=== PATIENT | female | born 2000 | race Caucasian/White ===

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

== ENCOUNTER → 2020-01-13 16:49 | Outpatient (CLI) | payer OTHER, SELFPAY | PROVIDERS: PCP Family Medicine; Visit Provider Family Medicine | DX: Z03.818 Encounter for observation for suspected exposure to other biological agents ruled out (principal) | CPT/HCPCS: U0003 ==

== ENCOUNTER → 2020-04-11 10:07 | Outpatient (CLI) | payer OTHER, SELFPAY ==
[2020-04-11 14:43] LABS: Basophils % 0.6 % (0.1-2.0); Eosinophils # 0.2 K/mm3 (0.0-0.4); Eosinophils % 3.6 % (0.1-12.0); Hematocrit 40.5 % (37.0-47.0); Hemoglobin 12.8 g/dL (12.2-16.2); Lymphocytes # 1.4 K/mm3 (0.7-4.5); Lymphocytes % 23.2 % (10-50); Mean Corpuscular HGB Conc 31.5 g/dL (31.8-35.4); Mean Corpuscular Hemoglobin 26.7 pg (27.0-31.2); Mean Corpuscular Volume 84.8 fl (81-99); Mean Platelet Volume 7.7 fl (7.4-10.4); Monocytes # 0.4 K/mm3 (0.1-1.0); Monocytes % 6.2 % (1.7-9.3); Neutrophils # 4.1 K/mm3 (1.8-7.8); Neutrophils % 66.3 % (37.0-80.0); Platelet Count 346 K/mm3 (142-424); Red Blood Count 4.78 M/mm3 (4.20-5.40); Red Cell Distribution Width 12.7 % (11.5-17.5); White Blood Count 6.1 K/mm3 (4.5-13.0)
[2020-04-11 15:12] LABS: Strep Scrn Group A (Rapid) Negative (Negative)
[2020-04-12 17:46] LABS: Covid-19 Nasal PCR Sendout Lex Not Detected
== END ==
PROVIDERS: PCP Family Medicine; Visit Provider Nurse Practitioner Family
DX: Z03.818 Encounter for observation for suspected exposure to other biological agents ruled out (principal)
CPT/HCPCS: 36415; 85025; 87430; U0004

== ENCOUNTER → 2020-04-22 15:47 | Outpatient (CLI) | payer OTHER, SELFPAY ==
[2020-04-22 16:25] LABS: Basophils % 0.4 % (0.1-2.0); Eosinophils # 0.1 K/mm3 (0.0-0.4); Eosinophils % 1.3 % (0.1-12.0); Hematocrit 40.4 % (37.0-47.0); Hemoglobin 13.3 g/dL (12.2-16.2); Lymphocytes # 1.6 K/mm3 (0.7-4.5); Lymphocytes % 18.4 % (10-50); Mean Corpuscular HGB Conc 32.8 g/dL (31.8-35.4); Mean Corpuscular Hemoglobin 27.2 pg (27.0-31.2); Mean Corpuscular Volume 82.8 fl (81-99); Mean Platelet Volume 7.5 fl (7.4-10.4); Monocytes # 0.5 K/mm3 (0.1-1.0); Monocytes % 5.8 % (1.7-9.3); Neutrophils # 6.5 K/mm3 (1.8-7.8); Neutrophils % 74.1 % (37.0-80.0); Platelet Count 337 K/mm3 (142-424); Red Blood Count 4.87 M/mm3 (4.20-5.40); Red Cell Distribution Width 13.4 % (11.5-17.5); White Blood Count 8.8 K/mm3 (4.5-13.0)
== END ==
PROVIDERS: PCP Family Medicine; Visit Provider Family Medicine
DX: Z20.828 Contact with and (suspected) exposure to other viral communicable diseases (principal); U07.1 COVID-19
CPT/HCPCS: 36415; 85025; U0003

== ENCOUNTER 2020-04-25 20:56 | Emergency (ER) | payer OTHER, SELFPAY ==
[2020-04-25 20:57] VITALS: BP 127/77; PULSE 89; RESP 16; TEMP 36.6; O2SAT 98; BMI 25.6
--- NOTE | 2020-04-25 21:24 | XR_ITS ---
PROCEDURE: XR CHEST 2V CLINICAL HISTORY: sob Shortness of air, COVID 19 positive COMPARISON: CR CXR CHEST(2 VIEWS-NOT PORTABLE) from 08/25/2011 CR CXR2V XR chest 2V from 06/08/2017 FINDINGS: The cardiomediastinal silhouette and pulmonary vascularity are within normal limits. The lungs are clear without infiltrates, suspicious nodules, or pleural effusions. Calcified granuloma is present in the right lower lobe. There is an S-shaped curvature of the thoracic and lumbar spine as before. IMPRESSION: No acute findings. Dictated by: Cooper Palmer MD 04/26/2020 05:58 Cooper Palmer MD in [place] 04/26/2020 05:58
[2020-04-25 21:27] VITALS: BP 106/79; PULSE 70; RESP 16; O2SAT 97
--- NOTE | 2020-04-25 21:35 | ECG_ITS ---
APPROVED REPORT Exam: Resting ECG HR:65 bpm ECG Measurements Heart Rate 65 AXES WV 158 P 53 QRSd 86 QRS 67 QT 380 T 27 QTc 395 Conclusion Normal sinus rhythm Normal ECG Electronically signed by : Stan Holland, 04/27/2020 19:22:04
[2020-04-25 22:00] VITALS: BP 125/71; PULSE 72; RESP 18; O2SAT 99
--- NOTE | 2020-04-25 22:01 | CT_ITS ---
PROCEDURE: CT ANGIO CHEST CLINCIAL INDICATION: pe rule out COVID 19 positive, shortness of air COMPARISON: No exams were available for comparison TECHNIQUE: IV Contrast: 70ML Isovue 370 Axial images obtained with sagittal and coronal reformats. All CT scans at the facility use one or more dose reduction, viz: automated exposure control, ma/kV adjustment per patient size (including targeted exams where dose is matched to indication, i.e. head), or iterative reconstruction technique. FINDINGS: HEART AND MEDIASTINAL STRUCTURES: Pulmonary artery opacification is somewhat limited secondary to bolus timing. No central pulmonary embolus. Peripheral pulmonary arteries are not well opacified. No aortic aneurysm or dissection. No mediastinal or hilar mass. There is increased density of the anterior mediastinum which may be related to residual thymic tissue. There are calcified mediastinal and hilar lymph nodes LUNGS AND PLEURAL SPACES: Calcified granulomas present in the right lower lobe. Lungs are otherwise clear. BONY STRUCTURES: S-shaped curvature of the thoracic spine. UPPER ABDOMEN: Unremarkable. ADDITIONAL FINDINGS: No other significant abnormalities. IMPRESSION: No acute finding Dictated by: Cooper Palmer MD 04/26/2020 06:23 Cooper aPlmer MD in [place] 04/26/2020 06:23
--- NOTE | 2020-04-25 22:01 | HMH.EDSOB ---
ED Disposition Clinical Impression: COVID-19 UTI (urinary tract infection) Qualifiers: Urinary tract infection type: site unspecified Hematuria presence: without hematuria Qualified Code(s): N39.0 - Urinary tract infection, site not specified Disposition: Home, Self-Care Condition on Discharge: Good Instructions: DI for Shortness of Breath Additional Instructions: see pcp for follow up Prescriptions: levoFLOXacin [Levaquin 500mg tab] 500 mg PO DAILY #7 tab Transmission Status: Pending to [id number] Referrals: Sunny Cowan MD [Primary Care Provider] - - Critical Care Critical Care Time: No Attestation: On 04/25/20, the high probability of a clinically significant, sudden or life threatening deterioration of the following system(s) required my full and direct attention, intervention and personal management. The time I documented below is in addition to time spent performing reported procedures but includes the following listed in this critical care notation. Medical Decision Making - Medical Records Medical records reviewed: Yes: I reviewed the patient's medical records. - Frnako Inquiry Pt receiving controlled substance: No Vital Signs: 04/25/20 20:57 04/25/20 21:27 04/25/20 22:00 Temperature 97.8 F Temperature Source Oral Pulse Rate [Left Radial] 89 70 72 Respiratory Rate 16 16 18 Blood Pressure [Right Arm] 127/77 106/79 L 125/71 Blood Pressure Mean [Right Arm] 93 88 89 Blood Pressure Source [Right Arm] Automatic Cuff Automatic Cuff Automatic Cuff Blood Pressure Position [Right Arm] Supine Supine Supine 02 Sat by Pulse Oximetry 98 97 99 Oxygen Delivery Method Room Air Room Air Room Air 04/25/20 23:00 Temperature Temperature Source Pulse Rate [Left Radial] 74 Respiratory Rate 16 Blood Pressure [Right Arm] 127/77 Blood Pressure Mean [Right Arm] 93 Blood Pressure Source [Right Arm] Automatic Cuff Blood Pressure Position [Right Arm] Supine 02 Sat by Pulse Oximetry 98 Oxygen Delivery Method Room Air - Lab Data Lab results reviewed: Yes: I reviewed the patient's lab results. Lab Results 04/25/20 22:45: WBC 8.4, RBC 4.80, Hgb 13.3, Hct 41.3, MCV 86.0, MCH 27.6, MCHC 32.2, RDW 13.2, Plt Count 363, MPV 7.7, Neut % (Auto) 57.4, Lymph % (Auto) 32.3, Barton % (Auto) 7.1, Eos % (Auto) 2.9, Baso % (Auto) 0.4, Neut # (Auto) 4.8, Lymph # (Auto) 2.7, Barton # (Auto) 0.6, Eos # (Auto) 0.2, Baso # (Auto) 0.0 04/25/20 22:45: Sodium 139, Potassium 3.8, Chloride 103, Carbon Dioxide 30, Anion Gap 9.8, BUN 8, Creatinine 0.60, Estimated Creat Clear 151, Estimated GFR 129, Est GFR ( Amer) 156, Glucose 89, Calcium 9.2, Troponin I < 0.01 04/25/20 22:49: Urine Color Red, Urine Appearance Clear, Urine pH 7.5, Ur Specific [place] 1.020, Urine Protein 2+, Urine Glucose (UA) Negative, Urine Ketones Negative, Urine Blood 3+, Urine Nitrate Positive, Urine Bilirubin Negative, Urine Urobilinogen 0.2, Ur Leukocyte Esterase 2+ A, Urine RBC 10-20, Urine WBC 10-20, Urine Bacteria 1+ 04/25/20 22:49: Urine HCG, Qual Negative Result diagrams: 04/25/20 22:45 04/25/20 22:45 Orders (Tests/Meds): ED MEDICATIONS Generic Name Dose Route Start Last Admin Trade Name Freq PRN Reason Stop Dose Admin Sodium Chloride 1,000 mls @ 999 mls/hr 04/25/20 21:30 04/25/20 21:32 Sod Chlor 0.9% 1000ml Bag IV 04/25/20 22:30 999 mls/hr .Q1H1M LITA Administration Discontinued Medications Generic Name Dose Route Start Last Admin Trade Name Freq PRN Reason Stop Dose Admin Iopamidol 70 ml 04/25/20 23:50 Iopamidol-370 (76%);100ml Bottle IV 04/25/20 23:51 ONCE ONE Methylprednisolone Sodium Succinate 125 mg 04/25/20 21:25 04/25/20 21:32 Methylprednisolone Sod Succ 125mg Vial IV 04/25/20 21:26 125 mg ONCE ONE Administration Sodium Chloride 40 ml 04/25/20 23:50 0.9 % Sodium Chloride 50 Ml Vial IV 04/25/20 23:51 ONCE ONE Sodium Chloride 10 ml 04/25/20 23:50 Sodium Chlori
[2020-04-25 22:53] LABS: Microscopic, Urine URINE MICROSCOPIC (MICROSCOPIC)
[2020-04-25 22:58] LABS: Appearance,Urine CLEAR (Clear); Blood, Urine 3+ (Negative); Color,Urine RED (Yellow); Glucose,Urine (UA) Negative (Negative); Ketones,Urine Negative (Negative); Leukocyte Esterase,Urine 2+ (Negative); Nitrate,Urine POSITIVE (Negative); PH,Urine 7.5 (5.0-8.5); Protein,Urine 2+ (Negative); Urobilinogen,Urine 0.2 EU/dl (0.2)
[2020-04-25 22:59] LABS: Urine Pregnancy, HCG Qual. Negative (Negative)
[2020-04-25 23:00] VITALS: BP 127/77; PULSE 74; RESP 16; O2SAT 98
[2020-04-25 23:07] LABS: Basophils % 0.4 % (0.1-2.0); Chloride 103 mmol/L (98-107); Eosinophils # 0.2 K/mm3 (0.0-0.4); Eosinophils % 2.9 % (0.1-12.0); Hematocrit 41.3 % (37.0-47.0); Hemoglobin 13.3 g/dL (12.2-16.2); Lymphocytes # 2.7 K/mm3 (0.7-4.5); Lymphocytes % 32.3 % (10-50); Mean Corpuscular HGB Conc 32.2 g/dL (31.8-35.4); Mean Corpuscular Hemoglobin 27.6 pg (27.0-31.2); Mean Platelet Volume 7.7 fl (7.4-10.4); Monocytes # 0.6 K/mm3 (0.1-1.0); Monocytes % 7.1 % (1.7-9.3); Neutrophils # 4.8 K/mm3 (1.8-7.8); Neutrophils % 57.4 % (37.0-80.0); Platelet Count 363 K/mm3 (142-424); Potassium 3.8 mmoL/L (3.5-5.1); Red Cell Distribution Width 13.2 % (11.5-17.5); Sodium 139 mmol/L (136-145); White Blood Count 8.4 K/mm3 (4.5-13.0)
[2020-04-25 23:09] LABS: Bilirubin,Urine Negative (Negative)
[2020-04-25 23:10] LABS: Blood Urea Nitrogen 8 mg/dl (7-17); Calcium 9.2 mg/dl (8.4-10.2); Creatinine Clearance Estimated 151 mL/min (50-200); Estimated Glomerular Filt Rate 129 ml/min (>60); GFR (African American) 156 ML/MIN (>60); Glucose 89 mg/dl (74-100)
[2020-04-25 23:23] LABS: Troponin I < 0.01 ng/ml (0.00-0.034)
[2020-04-25 23:37] LABS: Bacteria,Urine 1+ /lpf
[2020-04-25 23:38] LABS: Anion Gap 9.8 mEq/L (5-15); Carbon Dioxide 30 mmol/L (22.0-30.0)
[2020-04-26 00:11] VITALS: BP 131/84; PULSE 75; RESP 16; TEMP 36.6; O2SAT 96
== END 2020-04-26 00:09 | disposition home or self-care (01) ==
PROVIDERS: Emergency Provider Emergency Medicine; PCP Family Medicine
DX: U07.1 COVID-19 (principal); N39.0 Urinary tract infection, site not specified
CPT/HCPCS: 71046; 71275; 80048; 81001; 81025; 84484; 85025; 87086; 93005; 96365; 96375; 99283; Q9967

== ENCOUNTER → 2020-10-08 10:37 | Outpatient (CLI) | payer OTHER, SELFPAY ==
[2020-10-08 11:07] LABS: Adenovirus,PCR Not Detected (NotDetected); Bordetella Pertussis Not Detected (NotDetected); Chlamydophila Pneumoniae, PCR Not Detected (NotDetected); Coronavirus 19, PCR Not Detected (NotDetected); Coronavirus 229E Not Detected (NotDetected); Coronavirus NL63 Not Detected (NotDetected); Coronavirus OC43 Not Detected (NotDetected); Coronovirus HKU1,PCR Not Detected (NotDetected); Human Metapneumovirus Not Detected (NotDetected); Influenza A, PCR Not Detected (NotDetected); Influenza AH1, 2009 Not Detected (NotDetected); Influenza AH1, PCR Not Detected (NotDetected); Influenza AH3,PCR Not Detected (NotDetected); Influenza B, PCR Not Detected (NotDetected); Mycoplasma Pneumoniae, PCR Not Detected (NotDetected); Parainfluenza 1, PCR Not Detected (NotDetected); Parainfluenza 2, PCR Not Detected (NotDetected); Parainfluenza 3, PCR Not Detected (NotDetected); Parainfluenza 4, PCR Not Detected (NotDetected); Respiratory Syncytial Virus Not Detected (NotDetected)
[2020-10-08 11:14] LABS: Basophils % 0.5 % (0.1-2.0); Eosinophils # 0.2 K/mm3 (0.0-0.4); Eosinophils % 3.2 % (0.1-12.0); Hematocrit 39.1 % (37.0-47.0); Lymphocytes # 1.5 K/mm3 (0.7-4.5); Lymphocytes % 20.8 % (10-50); Mean Corpuscular HGB Conc 33.1 g/dL (31.8-35.4); Mean Corpuscular Hemoglobin 26.6 pg (27.0-31.2); Mean Corpuscular Volume 80.3 fl (81-99); Mean Platelet Volume 7.7 fl (7.4-10.4); Monocytes # 0.4 K/mm3 (0.1-1.0); Monocytes % 5.9 % (1.7-9.3); Neutrophils # 5.1 K/mm3 (1.8-7.8); Neutrophils % 69.6 % (37.0-80.0); Platelet Count 345 K/mm3 (142-424); Red Blood Count 4.87 M/mm3 (4.20-5.40); Red Cell Distribution Width 13.6 % (11.5-17.5); White Blood Count 7.3 K/mm3 (4.5-13.0)
[2020-10-08 11:57] LABS: Strep Scrn Group A (Rapid) Negative (Negative)
[2020-10-08 13:19] LABS: Rhinovirus/Enterovirus Detected (NotDetected)
== END ==
PROVIDERS: PCP Nurse Practitioner Family; Visit Provider Nurse Practitioner Family
DX: Z20.822 Contact with and (suspected) exposure to COVID-19 (principal); B34.8 Other viral infections of unspecified site; J02.9 Acute pharyngitis, unspecified
CPT/HCPCS: 85025; 87430; 87581; 87633; 87798

== ENCOUNTER → 2021-01-04 11:31 | Outpatient (CLI) | payer OTHER, SELFPAY ==
[2021-01-04 11:56] LABS: Adenovirus,PCR Not Detected (NotDetected); Bordetella Pertussis Not Detected (NotDetected); Chlamydophila Pneumoniae, PCR Not Detected (NotDetected); Coronavirus 19, PCR Not Detected (NotDetected); Coronavirus 229E Not Detected (NotDetected); Coronavirus NL63 Not Detected (NotDetected); Coronavirus OC43 Not Detected (NotDetected); Coronovirus HKU1,PCR Not Detected (NotDetected); Human Metapneumovirus Not Detected (NotDetected); Influenza A, PCR Not Detected (NotDetected); Influenza AH1, 2009 Not Detected (NotDetected); Influenza AH1, PCR Not Detected (NotDetected); Influenza AH3,PCR Not Detected (NotDetected); Influenza B, PCR Not Detected (NotDetected); Mycoplasma Pneumoniae, PCR Not Detected (NotDetected); Parainfluenza 1, PCR Not Detected (NotDetected); Parainfluenza 2, PCR Not Detected (NotDetected); Parainfluenza 3, PCR Not Detected (NotDetected); Parainfluenza 4, PCR Not Detected (NotDetected); Respiratory Syncytial Virus Not Detected (NotDetected); Rhinovirus/Enterovirus Not Detected (NotDetected)
[2021-01-04 12:16] LABS: Basophils % 0.9 % (0.1-2.0); Eosinophils # 0.1 K/mm3 (0.0-0.4); Eosinophils % 2.2 % (0.1-12.0); Hematocrit 37.5 % (37.0-47.0); Hemoglobin 12.4 g/dL (12.2-16.2); Lymphocytes # 1.3 K/mm3 (0.7-4.5); Lymphocytes % 25.6 % (10-50); Mean Corpuscular HGB Conc 33.2 g/dL (31.8-35.4); Mean Corpuscular Hemoglobin 26.5 pg (27.0-31.2); Mean Corpuscular Volume 79.8 fl (81-99); Mean Platelet Volume 7.9 fl (7.4-10.4); Monocytes # 0.3 K/mm3 (0.1-1.0); Monocytes % 5.7 % (1.7-9.3); Neutrophils # 3.3 K/mm3 (1.8-7.8); Neutrophils % 65.6 % (37.0-80.0); Platelet Count 284 K/mm3 (142-424); Red Cell Distribution Width 14.1 % (11.5-17.5)
== END ==
PROVIDERS: PCP Family Medicine; Visit Provider Physician Assistant
DX: Z20.822 Contact with and (suspected) exposure to COVID-19 (principal)
CPT/HCPCS: 36415; 85025; 87581; 87633; 87798

== ENCOUNTER 2021-01-07 14:45 | Emergency (ER) | payer OTHER, SELFPAY ==
[2021-01-07 14:45] VITALS: BP 126/81; PULSE 97; RESP 18; TEMP 37; O2SAT 97; BMI 26.4
--- NOTE | 2021-01-07 15:15 | HMH.EDUTC ---
[facility] [place] Clinical Impression: Strep throat Disposition: Home, Self-Care Condition on Discharge: Good Instructions: Strep Throat, DI for Strep Throat, DI for Cough -- Adult Additional Instructions: *Monitor Temp, Over the counter Motrin or Tylenol as directed/as needed Tylenol every 4 hours and Motrin every 6 hours (as long as your family doctor has told you that you can take it) for fever or pain. and straight to ER if unable to lower temp less than 101.0 after medication given *Warm salt water gargles may help to soothe the throat *Throat Lozenges *Warm fluids like tea with honey may help to soothe the throat *Sleep elevated *Humidifier/Vaporizer *If you did not take Penicillin shot or was unable to, start taking antibiotic immediately and make sure that you take it for the FULL length of time although you should start to feel better in 24-48 hours *change toothbrush and toothpaste 24-48 hours after starting to take antibiotics so you do not reinfect yourself Monitor Temp. Tylenol and/or Ibuprofen as needed. ER if fever is no less than 101 despite alternating Tylenol and Ibuprofen * Encourage fluids, water, Gatorade, powerade, pedialyte if infant/toddler/or child *Cold fluids, popsicles and ice cream may feel good on his throat Follow up IMMEDIATELY for new or worsening symptoms or no Noticeable improvement over the next 48-72 hours. 911 for difficulty breathing or swallowing Prescriptions: Cefdinir [Omnicef 300mg Capsule] 300 mg PO BID #20 cap Transmission Status: Received by [id number] Referrals: Sunny Cowan MD [Primary Care Provider] - As needed Forms: Work/School Release Medical Decision Making - Franko Inquiry Pt receiving controlled substance: No Franko was queried for this patient: No Vital Signs: 01/07/21 14:45 01/07/21 15:17 Temperature 98.6 F 98.6 F Temperature Source Oral Pulse Rate 97 H Pulse Rate [Right Brachial] 97 H Respiratory Rate 18 18 Blood Pressure 126/81 Blood Pressure [Right Arm] 126/81 Blood Pressure Mean [Right Arm] 96 Blood Pressure Source [Right Arm] Automatic Cuff Blood Pressure Position [Right Arm] Sitting 02 Sat by Pulse Oximetry 97 Oxygen Delivery Method Room Air - Lab Data Lab results reviewed: Yes: I reviewed the patient's lab results. Lab Results 01/07/21 15:14: Strep Scn Rapid Clinic Positive A Orders (Tests/Meds): ORDERS Category Date Time Status Chest XR 2 view (NOT portable) [XR chest 2V] Stat Exams 01/07/21 15:19 Taken - Radiology Data #1 Image(s): Chest Image Reviewed: Yes I have reviewed radiologist's interpretation No acute IMPRESSION: Thoracolumbar scoliosis. No acute finding. [facility] [place] - General Stated complaint: cough, soa, fever Time Seen by Provider: 01/07/21 15:15 Mode of Arrival: Ambulatory Source of Information: Patient Limitations: No Limitations Description of Symptoms (Recalled from Triage Doc. by RN): PATIENT C/O SORE THROAT, HEADACHE, BODY ACHES, AND CHEST CONGESTION SINCE THURSDAY. BLOOD WORK AND COVID TEST DONE THURSDAY PER PCP HEENT Symptoms (Recalled from RN notes): Yes Resp Symptoms (Recalled from RN notes): Yes Skin Symptoms (Recalled from RN notes): No MS Symptoms (Recalled from RN notes): No Functional Status (Recalled from RN notes): WNL - History of Present Illness Provider Complaint: Patient state that she was seen by her PCP on Thursday and had lab work and COVID testing done and it was all negative States that her PCP sent her in some cough medication States that she has still been having fever, sore throat and burning in her throat and chest area when she coughs State that they told her to come in and get rechecked 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 - Related Data Home Medications Medication Instructions Recorded Confirmed escitalopram oxalate 20 mg tablet 20 mg PO DAILY tab 01/03/20 01/07/21 copper 380 square mm intraute
[2021-01-07 15:16] LABS: UTC Strep Screen (Rapid) Positive (Negative)
[2021-01-07 15:17] VITALS: BP 126/81; PULSE 97; RESP 18; TEMP 37; O2SAT 97
--- NOTE | 2021-01-07 15:19 | XR_ITS ---
PROCEDURE: XR CHEST 2V CLINICAL HISTORY: COUGH COMPARISON: CR CXR CHEST(2 VIEWS-NOT PORTABLE) from 08/25/2011 CR CXR2V XR chest 2V from 06/08/[address] ANGIO CHEST from 04/25/2020 CR XR CHEST 2V from 04/25/2020 FINDINGS: The cardiomediastinal silhouette and pulmonary vascularity are within normal limits. The lungs are clear without infiltrates, suspicious nodules, or pleural effusions. There is thoracolumbar scoliosis. Thoracic scoliosis convex right at 32 degrees. Lumbar scoliosis convex left at 25 degrees. Overall not significantly changed IMPRESSION: Thoracolumbar scoliosis. No acute finding. Dictated by: Cooper Palmer MD 01/07/2021 15:48 Cooper Palmer MD in [place] 01/07/2021 15:48
== END 2021-01-07 16:05 | disposition home or self-care (01) ==
PROVIDERS: Emergency Provider Nurse Practitioner; PCP Family Medicine
DX: J02.0 Streptococcal pharyngitis (principal)
CPT/HCPCS: 71046; 87880; 99202; G0463

== ENCOUNTER 2021-10-27 10:20 | Emergency (ER) | payer OTHER, SELFPAY ==
[2021-10-27 10:37] VITALS: BP 118/74; PULSE 75; RESP 19; TEMP 37.2; O2SAT 98; BMI 29.6
--- NOTE | 2021-10-27 10:38 | HMH.EDUTC ---
[facility] [place] Disposition Clinical Impression: Viral syndrome Pharyngitis Qualifiers: Pharyngitis/tonsillitis etiology: other specified organisms Qualified Code(s): J02.8 - Acute pharyngitis due to other specified organisms Disposition: Home, Self-Care Condition on Discharge: Good Instructions: DI for Pharyngitis/Tonsillopharyngitis -- Adult Additional Instructions: Drink plenty of fluids. Take tylenol or ibuprofen for pain or fever. Take the medications as directed. Follow up with your regular doctor. GO TO THE ER FOR ANY WORSENING SYMPTOMS Prescriptions: Brompheniramine/Pseudoephed/Dm [Bromfed Dm Cough Syrup] 5 ml PO Q6HP PRN #240 ml PRN Reason: Cough Transmission Status: Received by [id number] Ibuprofen [Ibuprofen 600mg Tablet] 600 mg PO Q6HP PRN #30 tab PRN Reason: Mild Pain Transmission Status: Received by [facility] Azithromycin [Z-Narendra 250mg Tab*] 250 mg PO UD DOSE PK #6 tab Transmission Status: Received by [facility] Referrals: Sunny Cowan MD [Primary Care Provider] - Time of Disposition: 11:14 Medical Decision Making - Medical Records Medical records reviewed: No: I reviewed the patient's medical records. - Franko Inquiry Pt receiving controlled substance: No Vital Signs: 10/27/21 10:37 10/27/21 11:35 Temperature 99.0 F 99.0 F Temperature Source Oral Pulse Rate 75 Pulse Rate [Left Radial] 75 Respiratory Rate 19 19 Blood Pressure 118/74 Blood Pressure [Right Arm] 118/74 Blood Pressure Mean [Right Arm] 88 02 Sat by Pulse Oximetry 98 - Lab Data Lab results reviewed: Yes: I reviewed the patient's lab results. Lab Results 10/27/21 10:32: Influenza Type A Ag Negative, Influenza Type B Ag Negative 10/27/21 10:35: Group A Strep Rapid Negative Orders (Tests/Meds): ORDERS Category Date Time Status Strep Screen Confirmation Stat Micro 10/27/21 10:35 Received [facility] [place] HPI - General Stated complaint: fever, sore throat, bodyaches Time Seen by Provider: 10/27/21 10:40 - History of Present Illness Provider Complaint: She states that she has had a sore throat, sinus congstion and a cough for the past 2 days. - Related Data Home Medications Medication Instructions Recorded Confirmed escitalopram oxalate 20 mg tablet 20 mg PO DAILY tab 01/03/20 03/19/21 copper 380 square mm intrauterine 1 device INTRAUTERI ONCE 10/25/20 03/19/21 device Previous Rx's Medication Instructions Recorded Azithromycin [Z-Narendra 250mg Tab*] 250 mg PO UD DOSE PK #6 tab 10/27/21 Brompheniramine/Pseudoephed/Dm 5 ml PO Q6HP PRN #240 ml 10/27/21 [Bromfed Dm Cough Syrup] Ibuprofen [Ibuprofen 600mg 600 mg PO Q6HP PRN #30 tab 10/27/21 Tablet] Allergies Allergy/AdvReac Type Severity Reaction Status Date / Time cinnamon Allergy Unknown Unknown Verified 03/19/21 13:19 allergy reaction oxycodone [From PERCOCET] Allergy Unknown I-HIVES Verified 03/19/21 13:19 shellfish derived Allergy Unknown Rash Verified 03/19/21 13:19 strawberry Allergy Unknown Verified 03/19/21 13:19 allergy reaction [facility] History - Hepatitis A Screen Attestation statement:: This patient has been screened for Hepatitis A risk factors. I have reviewed the patient's past medical history: Yes Medical History: Denies:: Cancer, Diabetes Mellitus Type 1, Diabetes Mellitus Type 2, MRSA Comment: NEXPLANON Laterality Cases: Bilateral: Tonsillectomy Other Surgeries: Yes: Other Amputation: No Fractures: No Comment: 2002- sinus surgery. 2007- tonsil-X. 2017- Dx. 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
[2021-10-27 10:46] LABS: UTC Influenza A Antigen Negative (Negative); UTC Influenza B Antigen Negative (Negative)
[2021-10-27 10:54] LABS: Strep Scrn Group A (Rapid) Negative (Negative)
[2021-10-27 11:35] VITALS: BP 118/74; PULSE 75; RESP 19; TEMP 37.2
== END 2021-10-27 11:36 | disposition home or self-care (01) ==
PROVIDERS: Emergency Provider Nurse Practitioner Family; PCP Family Medicine
DX: J02.8 Acute pharyngitis due to other specified organisms (principal); B34.9 Viral infection, unspecified
CPT/HCPCS: 87430; 87804; 99212; G0463

== ENCOUNTER → 2021-12-12 14:09 | Outpatient (CLI) | payer OTHER, SELFPAY ==
--- NOTE | 2021-12-12 14:13 | XR_ITS ---
FINAL REPORT CLINICAL HISTORY: INJURY OF RIGHT KNEE FINDINGS: RIGHT KNEE Three views were obtained. There is no acute fracture or dislocation. The joint spaces appear normal. No joint effusion is identified. No soft tissue abnormality is identified. IMPRESSION: No acute process. Reviewed, Interpreted and Dictated by Iban Nuno III, MD Transcribed by Susan Koenig Authenticated and [facility]
--- NOTE | 2021-12-12 14:14 | XR_ITS ---
FINAL REPORT CLINICAL HISTORY: INJURY OF RIGHT KNEE ENCOUNTER FINDINGS: RIGHT TIBIA FIBULA Two views were obtained. There is no acute fracture or dislocation. The joint spaces appear normal. No soft tissue abnormality is identified. IMPRESSION: No acute process. Reviewed, Interpreted and Dictated by Iban Nuno III, MD Transcribed by Susan Koenig Authenticated and [facility]
== END ==
PROVIDERS: PCP Family Medicine; Visit Provider Physician Assistant
DX: S89.91XA Unspecified injury of right lower leg, initial encounter (principal); M25.561 Pain in right knee
CPT/HCPCS: 73562; 73590

== ENCOUNTER 2022-03-15 08:41 | Emergency (ER) | payer OTHER, SELFPAY ==
[2022-03-15 09:02] VITALS: BP 126/79; PULSE 91; RESP 16; TEMP 36.7; O2SAT 96; BMI 28.7
[2022-03-15 09:02] LABS: UTC Strep Screen (Rapid) Negative (Negative)
--- NOTE | 2022-03-15 09:14 | EXP.UTC ---
Discharge Plan Disposition Patient Disposition: Home, Self-Care Condition: Good Prescriptions Prescriptions: New amoxicillin [amoxicillin] 500 mg tablet 500 mg PO TID 10 Days Qty: 30 0RF methylprednisolone 4 mg Tablets,Dose Pack 4 mg PO DIRECTED Qty: 21 0RF ndaotstueycjbjt-hcuvryetg-ZX [Bromfed DM] 2-30-10 mg/5 mL Syrup 5 ml PO Q6H PRN (Reason: Cough) Qty: 240 0RF No Action escitalopram oxalate 20 mg tablet 20 mg PO DAILY ParaGard T 380A 380 square mm intrauterine device 1 device INTRAUTERI ONCE azithromycin 250 MG tablet 250 mg PO UD DOSE PK Qty: 6 0RF Rx Instructions: Take two (2) tablets today, then one (1) tablet days #2 thru #5 ibuprofen 600 MG tablet 600 mg PO Q6HP PRN (Reason: Mild Pain) Qty: 30 0RF tzzgrtlalwqmxum-bgsbigtrb-SP 118 ML syrup 5 ml PO Q6HP PRN (Reason: Cough) Qty: 240 0RF Referrals Follow up/Referrals: Sunny Cowan MD [Primary Care Provider] - See instructions Activity Restrictions/Add. Instructions Additional Instructions/Restrictions: Drink plenty of fluids. Take tylenol or ibuprofen for pain or fever. Take the medications as directed. Follow up with your regular doctor. GO TO THE ER FOR ANY WORSENING SYMPTOMS Clinical Impressions Clinical Impression: Pharyngitis Instructions Patient Instructions: Strep Throat, DI for Strep Throat Discharge ED Provider: Colby Francis [facility] [place] General Stated complaint: sore throat Mode of Arrival: Ambulatory Source of Information: Patient Limitations: No Limitations Time Seen by Provider: 03/15/22 09:10 Description of Symptoms (Recalled from Triage Doc. by RN): pt comes in with c/o sore throat and cough. symptoms began 3 days ago. HEENT Symptoms (Recalled from RN notes): Yes Resp Symptoms (Recalled from RN notes): Yes Skin Symptoms (Recalled from RN notes): No MS Symptoms (Recalled from RN notes): No Functional Status (Recalled from RN notes): n/a History of Present Illness Provider Complaint: She states that for the past 2 days she has had worsening sore throat, chills, and malaise. Related Data Home Medications Medication Instructions Recorded Confirmed escitalopram oxalate 20 mg tablet 20 mg PO DAILY Anxiety 01/03/20 11/01/21 copper 380 square mm intrauterine 1 device intrauterine ONCE 10/25/20 11/01/21 device (ParaGard T 380A) control Previous Rx's Medication Instructions Recorded azithromycin 250 mg tablet 250 mg PO UD DOSE PK #6 tabs 10/27/21 joyqadzvuixqjfu-vhfoytrqonyrujd-AX 5 ml PO Q6HP PRN Cough #240 mL 10/27/21 2 mg-30 mg-10 mg/5 mL oral syrup ibuprofen 600 mg tablet 600 mg PO Q6HP PRN Mild Pain #30 10/27/21 tabs amoxicillin 500 mg tablet 500 mg PO TID 10 days #30 tabs 03/15/22 zkyuwzrwbieydez-dsdnkytridkkikz-IA 5 ml PO Q6H PRN Cough #240 mL 03/15/22 2 mg-30 mg-10 mg/5 mL oral syrup (Bromfed DM) methylprednisolone 4 mg tablets in 4 mg PO DIRECTED #21 tabs 03/15/22 a dose pack Allergies Allergy/AdvReac Type Severity Reaction Status Date / Time cinnamon Allergy Unknown Unknown Verified 03/15/22 09:04 allergy reaction oxycodone [From PERCOCET] Allergy Unknown I-HIVES Verified 03/15/22 09:04 shellfish derived Allergy Unknown Rash Verified 03/15/22 09:04 strawberry Allergy Unknown Verified 03/15/22 09:04 allergy reaction Worker's Comp Is this a Worker's Comp case?: No PFSH PFSH Social History Smoking Status: Never smoker alcohol intake: never substance use type: denies use current occupational status: other Travel in the last 8 weeks: None housing: house ROS Obtained: Yes All systems reviewed & no additional complaints except as documented Constitutional Constitutional: Reports chills and Reports fever(s) Eyes Eyes: Denies eye discharge ENT Ears, Nose, Mouth, and Throat: Reports as per HPI Cardiovascular Cardiovascular: Denies chest
[2022-03-15 09:28] VITALS: BP 126/79; PULSE 91; RESP 16; TEMP 36.7
== END 2022-03-15 09:33 | disposition home or self-care (01) ==
PROVIDERS: Emergency Provider Nurse Practitioner Family; PCP Family Medicine
DX: J02.9 Acute pharyngitis, unspecified (principal)
CPT/HCPCS: 87880; 99212; G0463

== ENCOUNTER 2023-02-02 09:08 | Emergency (ER) | payer OTHER, SELFPAY ==
[2023-02-02 09:10] VITALS: BP 126/84; PULSE 101; RESP 18; TEMP 36.6; O2SAT 99; BMI 28.8
[2023-02-02 09:31] VITALS: BP 107/82; PULSE 100; O2SAT 99
--- NOTE | 2023-02-02 09:52 | HMH.EDGENADL ---
Discharge Plan Disposition Patient Disposition: Home, Self-Care Prescriptions Prescriptions: New promethazine-DM 6.25-15 mg/5 mL syrup 5 ml PO Q6H PRN (Reason: cough) 7 Days Qty: 118 0RF albuterol sulfate 90 mcg/actuation HFA aerosol inhaler 4 inh inhalation Q4H PRN (Reason: shortness of breath or wheezing) Qty: 8.5 0RF Rx Instructions: 4 puffs every 4 hours for 48 hours then as needed for shortness of breath or wheezing following ondansetron 4 mg tablet,disintegrating 4 mg PO Q6H PRN (Reason: nausea and vomiting) 5 Days Qty: 20 0RF No Action duloxetine 60 mg capsule,delayed release(DR/EC) 60 mg PO DAILY Patient Comments: TAKE 1 CAPSULE BY MOUTH ONCE DAILY norgestimate-ethinyl estradiol [Sprintec (28)] 0.25-35 mg-mcg tablet 1 tab PO DAILY quetiapine 25 mg tablet 25 mg PO HS Patient Comments: TAKE 1 TABLET BY MOUTH AT BEDTIME cefdinir 300 mg capsule 300 mg PO BID Patient Comments: TAKE 1 CAPSULE BY MOUTH EVERY 12 HOURS FOR 10 DAYS Referrals Follow up/Referrals: Sunny Cowan MD [Primary Care Provider] - See instructions Activity Restrictions/Add. Instructions Additional Instructions/Restrictions: Your treatment will be supportive meaning treating your symptoms. You may take Tylenol 1000 mg 3 times a day with or without 800 mg of ibuprofen 3 times a day. You may do this for the next week as needed. Additionally been given prescriptions for cough and nausea if needed. Return with any worsening symptoms. Clinical Impressions Clinical Impression: Acute viral syndrome Stand Alone Forms Stand Alone Forms: Work/School Release Instructions Patient Instructions: DI for Viral Syndrome Discharge ED Provider: Jairo Jasmine General Adult HPI General Chief complaint: Fever Stated complaint: body aches, no taste/smell, jaw/ear pain Time Seen by Provider: 02/02/23 09:21 Mode of Arrival: Family Vehicle Source of Information: Patient Limitations: No Limitations Description of Symptoms (Recalled from ER Triage Doc. by RN): Pt c/o sore throat, sinus drainage, inability to taste or smell, fever, cough, and body aches. States she tested + for strep on Thursday and provider gave her an ABX but pt reports she has continued to feel poorly with symtoms increasing. She works at a middle school and worried about covid. Denies any SOA or dyspnea. T-Max 101.3 last night and pt took Tylenol at that time. Denies any other OTC antipyretics. History of Present Illness HPI narrative: Patient is a 22-year-old female here with multiple complaints. States that she started having a sore throat at the end of last week and had a strep test that was positive and she was started on antibiotics and her symptoms progressively worsened since that time. She states that since that time she developed a cough fever body aches some sinus congestion headache and loss of taste and smell. No known positives of COVID at this point. She took Tylenol yesterday evening only 250 mg tablets x2. She is not had any antipyretics or pain medication today. She states she feels very bad and would like medications in the ER to improve her symptoms. Denies any other significant medical problems. Related Data Home Medications Medication Instructions Recorded Confirmed cefdinir 300 mg capsule 300 mg PO BID strep infection 02/02/23 02/02/23 (01/31) duloxetine 60 mg capsule,delayed 60 mg PO DAILY anxitey 02/02/23 02/02/23 release norgestimate 0.25 mg-ethinyl 1 tab PO DAILY Control 02/02/23 02/02/23 estradiol 35 mcg tablet (Sprintec (28)) quetiapine 25 mg tablet 25 mg PO HS anxitey/sleep 02/02/23 02/02/23 Previous Rx's Medication Instructions Recorded albuterol sulfate 90 mcg/actuation 4 inh inhalation Q4H PRN shortness 02/02/23 aerosol inhaler of breath or wheezing #8.5 grams ondansetron 4 mg disintegrating 4 mg PO Q6H PRN nausea and 02/02/23 tablet vomiting 5 days #20 tabs promet
[2023-02-02 09:54] LABS: Coronavirus 19, PCR Not Detected (NotDetected); Influenza A, PCR Not Detected (NotDetected); Influenza B, PCR Not Detected (NotDetected)
[2023-02-02 09:54] LABS: Basophils % 0.5 % (0.1-2.0); Eosinophils # 0.2 K/mm3 (0.0-0.4); Eosinophils % 2.8 % (0.1-12.0); Hematocrit 40.5 % (37.0-47.0); Hemoglobin 13.5 g/dL (12.2-16.2); Lymphocytes # 1.4 K/mm3 (0.7-4.5); Lymphocytes % 17.8 % (10-50); Mean Corpuscular HGB Conc 33.2 g/dL (31.8-35.4); Mean Corpuscular Hemoglobin 27.3 pg (27.0-31.2); Mean Platelet Volume 7.8 fl (7.4-10.4); Monocytes # 0.5 K/mm3 (0.1-1.0); Neutrophils # 5.7 K/mm3 (1.8-7.8); Neutrophils % 72.9 % (37.0-80.0); Platelet Count 365 K/mm3 (142-424); Red Blood Count 4.94 M/mm3 (4.20-5.40); Red Cell Distribution Width 13.6 % (11.5-17.5); White Blood Count 7.9 K/mm3 (4.8-10.8)
[2023-02-02 09:56] LABS: Chloride 104 mmol/L (98-107); Potassium 3.9 mmoL/L (3.5-5.1); Sodium 138 mmol/L (136-145)
[2023-02-02 09:59] LABS: Alanine Aminotransferase 23 U/L (12-78); Albumin Level 4.1 g/dl (3.5-5.0); Albumin/Globulin Ratio 1.1 (1.1-1.8); Alkaline Phosphatase 76 U/L (38-126); Anion Gap 13.9 mEq/L (5-15); Aspartate Amino Transferase 23 U/L (14-36); Bilirubin,Total 0.6 mg/dl (0.2-1.3); Blood Urea Nitrogen 6 mg/dl (7-17); Calcium 9.6 mg/dl (8.4-10.2); Carbon Dioxide 24 mmol/L (22.0-30.0); Creatinine Clearance Estimated 144 mL/min (50-200); Estimated Glomerular Filt Rate 105 ml/min (>60); GFR (African American) 127 ML/MIN (>60); Globulin 3.8 g/dL (1.3-3.2); Glucose 100 mg/dl (74-100); Total Protein,Serum 7.9 g/dl (6.3-8.2)
[2023-02-02 10:00] VITALS: BP 108/70; PULSE 99; O2SAT 100
--- NOTE | 2023-02-02 10:11 | PC.NURSE ---
Rounded on patient; no needs at this time. Pt lying on Ed stretcher talking on cell phone. Call franks within reach
[2023-02-02 10:30] VITALS: PULSE 92; O2SAT 100
[2023-02-02 10:56] VITALS: BP 114/75; PULSE 83; RESP 16; TEMP 36.6; O2SAT 99
== END 2023-02-02 11:05 | disposition home or self-care (01) ==
PROVIDERS: Emergency Provider Student in an Organized Health Care Education/Training Program; PCP Family Medicine
DX: R50.9 Fever, unspecified (principal); R05.9 Cough, unspecified; R51.9 Headache, unspecified; B34.9 Viral infection, unspecified; Z87.891 Personal history of nicotine dependence
CPT/HCPCS: 80053; 85025; 87636; 96361; 96374; 96375; 99284

== ENCOUNTER 2023-05-04 12:37 | Emergency (ER) | payer OTHER, SELFPAY ==
[2023-05-04 12:39] VITALS: BP 138/91; PULSE 88; RESP 16; TEMP 36.9; O2SAT 99; BMI 27.8
[2023-05-04 13:00] VITALS: BP 128/81; PULSE 70; RESP 18; O2SAT 98
[2023-05-04 13:30] VITALS: BP 114/76; PULSE 88; RESP 18; O2SAT 97
[2023-05-04 14:00] VITALS: BP 126/78; PULSE 86; RESP 20; O2SAT 98
[2023-05-04 14:26] VITALS: BP 110/72; PULSE 75; RESP 20; TEMP 36.7; O2SAT 97
--- NOTE | 2023-05-05 07:32 | HMH.EDGENADL ---
Discharge Plan Disposition Patient Disposition: Home, Self-Care Condition: Good Prescriptions Prescriptions: New ivermectin 3 mg tablet 13,789 mcg PO WEEKLY Qty: 10 0RF No Action duloxetine 60 mg capsule,delayed release(DR/EC) 60 mg PO DAILY Patient Comments: TAKE 1 CAPSULE BY MOUTH ONCE DAILY norgestimate-ethinyl estradiol [Sprintec (28)] 0.25-35 mg-mcg tablet 1 tab PO DAILY quetiapine 25 mg tablet 25 mg PO HS Patient Comments: TAKE 1 TABLET BY MOUTH AT BEDTIME cefdinir 300 mg capsule 300 mg PO BID Patient Comments: TAKE 1 CAPSULE BY MOUTH EVERY 12 HOURS FOR 10 DAYS promethazine-DM 6.25-15 mg/5 mL syrup 5 ml PO Q6H PRN (Reason: cough) 7 Days Qty: 118 0RF albuterol sulfate 90 mcg/actuation HFA aerosol inhaler 4 inh inhalation Q4H PRN (Reason: shortness of breath or wheezing) Qty: 8.5 0RF Rx Instructions: 4 puffs every 4 hours for 48 hours then as needed for shortness of breath or wheezing following ondansetron 4 mg tablet,disintegrating 4 mg PO Q6H PRN (Reason: nausea and vomiting) 5 Days Qty: 20 0RF Referrals Follow up/Referrals: Sunny Cowan MD [Primary Care Provider] - See instructions Activity Restrictions/Add. Instructions Additional Instructions/Restrictions: I have ordered medications to treat to for suspected scabies. Please return with any new or worsening symptoms. He may continue to take Benadryl as needed Clinical Impressions Clinical Impression: Scabies Instructions Patient Instructions: ISABELLE Ochoa for Scabies Discharge ED Provider: Jasper Walters General Adult HPI General Chief complaint: Skin/Abscess/Foreign Body Stated complaint: rash on body Time Seen by Provider: 05/04/23 12:53 Mode of Arrival: Ambulatory Source of Information: Patient Limitations: No Limitations Description of Symptoms (Recalled from ER Triage Doc. by RN): pt reports rash that started lastnight. Pt has hives on nyasia arms, nyasia legs, and neck. Pt reports hives are hot and itch History of Present Illness HPI narrative: Patient has history of allergies, anaphylaxis, and presents with rash of left upper extremity, scattered over waistband area, gradual in onset worsening over the past 24 hours, previous therapies include Benadryl with improvement of symptoms, moderate, rash is pruritic, has not had similar symptoms before, no shortness of breath, no nausea or vomiting, no contacts with similar symptoms. No known exposures to irritants. Related Data Home Medications Medication Instructions Recorded Confirmed cefdinir 300 mg capsule 300 mg PO BID strep infection 02/02/23 02/02/23 (01/31) duloxetine 60 mg capsule,delayed 60 mg PO DAILY anxitey 02/02/23 02/02/23 release norgestimate 0.25 mg-ethinyl 1 tab PO DAILY Control 02/02/23 02/02/23 estradiol 35 mcg tablet (Sprintec ()) quetiapine 25 mg tablet 25 mg PO HS anxitey/sleep 02/02/23 02/02/23 Previous Rx's Medication Instructions Recorded albuterol sulfate 90 mcg/actuation 4 inh inhalation Q4H PRN shortness 02/02/23 aerosol inhaler of breath or wheezing #8.5 grams ondansetron 4 mg disintegrating 4 mg PO Q6H PRN nausea and 02/02/23 tablet vomiting 5 days #20 tabs promethazine-DM 6.25 mg-15 mg/5 mL 5 ml PO Q6H PRN cough 7 days #118 02/02/23 oral syrup mL ivermectin 3 mg tablet 13,789 mcg PO WEEKLY 2 doses #10 05/04/23 tabs Allergies Allergy/AdvReac Type Severity Reaction Status Date / Time cinnamon Allergy Unknown Unknown Verified 02/02/23 09:22 allergy reaction oxycodone [From PERCOCET] Allergy Unknown I-HIVES Verified 02/02/23 09:22 shellfish derived Allergy Unknown Rash Verified 02/02/23 09:22 strawberry Allergy Unknown Verified 02/02/23 09:22 allergy reaction PFSH PFSH Disclaimer: The information contained in this section may have been updated after the patient was seen, as this information can be updated by other users. Surgic
== END 2023-05-04 14:26 | disposition home or self-care (01) ==
PROVIDERS: Emergency Provider Emergency Medicine; PCP Family Medicine
DX: B86 Scabies (principal); L29.8 Other pruritus
CPT/HCPCS: 99283

== ENCOUNTER 2023-07-21 11:20 | Emergency (ER) | payer OTHER, SELFPAY ==
[2023-07-21 11:45] VITALS: BP 131/86; PULSE 105; RESP 19; TEMP 37.6; O2SAT 100; BMI 28.3
--- NOTE | 2023-07-21 11:59 | EXP.UTC ---
Discharge Plan Disposition Patient Disposition: Home, Self-Care Condition: Good Prescriptions Prescriptions: No Action duloxetine 60 mg capsule,delayed release(DR/EC) 60 mg PO DAILY Patient Comments: TAKE 1 CAPSULE BY MOUTH ONCE DAILY quetiapine 25 mg tablet 25 mg PO HS Patient Comments: TAKE 1 TABLET BY MOUTH AT BEDTIME Referrals Follow up/Referrals: Sunny Cowan MD [Primary Care Provider] - See instructions Activity Restrictions/Add. Instructions Additional Instructions/Restrictions: *Monitor Temp, Over the counter Motrin or Tylenol as directed/as needed Tylenol every 4 hours and Motrin every 6 hours (as long as your family doctor has told you that you can take it) for fever or pain. and straight to ER if unable to lower temp less than 101.0 after medication given *Warm salt water gargles may help to soothe the throat *Throat Lozenges? *Warm fluids like tea with honey may help to soothe the throat? *Sleep elevated *Humidifier/Vaporizer *Flonase 2 sprays in each nostril daily but be aware that it may take 2-3 days before you notice improvement *Bromfed may cause drowsiness. Know how it effects you (your child) before driving, caring for small child, or sending your child to school. Not other antihistamines/allergy medications while taking bromfed Your throat swab was sent for culture. Those results are typically sent to your primary care. Be sure to follow up in 2-3 days with your family doctor/primary care physician if no improvement so they can review those result and treat if necessary. If you don?t have a primary care doctor, I recommend you get one but in the mean time, you will have to return to a walk in clinic Follow up IMMEDIATELY for new or worsening symptoms or no Noticeable improvement over the next 48-72 hours. 911 for difficulty breathing or swallowing You were tested for today for Upper Respiratory Panel with COVID19 your test result should be back in the next 24 hours, you may check your results on the [facility] if your COVID test is positive you must Quarantine for 5 days Clinical Impressions Clinical Impression: Viral syndrome Stand Alone Forms Stand Alone Forms: Work/School Release Instructions Patient Instructions: Sore Throat, DI for Nasal Congestion Discharge ED Provider: Vika Shipman [facility] [place] Stated complaint: congestion, sore throat Mode of Arrival: Ambulatory Source of Information: Patient Limitations: No Limitations Time Seen by Provider: 07/21/23 11:59 Description of Symptoms (Recalled from Triage Doc. 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 so today when she was still not feeling any better she came in to get checked Related Data Home Medications Medication Instructions Recorded Confirmed duloxetine 60 mg capsule,delayed 60 mg PO DAILY anxitey 02/02/23 07/21/23 release quetiapine 25 mg tablet 25 mg PO HS anxitey/sleep 02/02/23 07/21/23 Allergies Allergy/AdvReac Type Severity Reaction Status Date / Time cinnamon Allergy Unknown Unknown Verified 02/02/23 09:22 allergy reaction oxycodone [From PERCOCET] Allergy Unknown I-HIVES Verified 02/02/23 09:22 shellfish derived Allergy Unknown Rash Verified 02/02/23 09:22 strawberry Allergy Unknown Verified 02/02/23 09:22 allergy reaction Worker's Comp Is this a Worker's Comp case?: No [facility] Disclaimer: The information contained in this section may have been updated after the patient was seen, as this information can be updated by other users. Surgical History (Updated 08/08/22 @ 13:46 by ELIZABETH Mireles) History of tonsillectomy and adenoidectomy Hx of laparoscopy Family History (Updated 08/08/22 @ 13:46 by ELIZABETH Mireles) Other No significant family history Social History (Updated 08/08/22 @ 13:47 by ELIZABETH Mireles) Smoking Status: Never smoker alcohol intake: current substance use type: denies use current occupational status: other Travel in the last 8 weeks: None housing: house ROS Obtained: Yes All systems reviewed & no additional complaints except as documented and Yes Systems reviewed as appropriate & no additional complaints except as documented Constitutional Constitutional: Reports system reviewed and no additional complaints, except as documented, Reports as per HPI, Reports body ache and Reports chills ENT Ears, Nose, Mouth, and Throat: Reports system reviewed and no additional complaints, except as documented, Reports as per HPI, Reports nasal congestion and Reports sore throat Cardiovascular Cardiovascular: Reports system reviewed and no additional complaints, except as documented and Reports as per HPI Respiratory Respiratory: Reports system reviewed and no additional complaints, except as documented and Reports as per HPI Gastrointestinal Gastrointestingal: Reports system reviewed and no additional complaints, except as documented and as per HPI Physical Exam General General appearance: alert and in no apparent distress ENT ENT exam: Present mucous membranes moist Expanded ENT Exam Throat exam: Present other (Pharyngeal erythema noted with PND) Respiratory Respiratory exam: Present normal lung sounds bilaterally; Absent respiratory distress or wheezes Cardiovascular Cardiovascular exam: Present regular rate, normal rhythm and tachycardia Abdominal Exam Abdominal exam: Present soft and normal bowel sounds; Absent distention or tenderness Neurological Exam Neurological exam: Present alert, oriented X3 and normal gait Medical Decision Making Franko Inquiry Pt receiving controlled substance: No Franko was queried for this patient: No Vital Signs: 07/21/23 11:45 Temperature 99.6 F Temperature Source Oral Pulse Rate [Left Brachial] 105 H Respiratory Rate 19 Blood Pressure [Left Arm] 131/86 Blood Pressure Mean [Left Arm] 101 Blood Pressure Source [Left Arm] Automatic Cuff Blood Pressure Position [Left Arm] Sitting 02 Sat by Pulse Oximetry 100 Oxygen Delivery Method Room Air Lab Data Lab results reviewed: Yes I reviewed the patient's lab results.
[2023-07-21 12:06] LABS: UTC Influenza A Antigen Negative (Negative); UTC Influenza B Antigen Negative (Negative); UTC Strep Screen (Rapid) Negative (Negative)
[2023-07-21 12:12] VITALS: BP 131/86; PULSE 105; RESP 19; TEMP 37.6; O2SAT 100
[2023-07-21 12:12] LABS: Adenovirus,PCR Not Detected (NotDetected); Coronavirus 19, PCR Not Detected (NotDetected); Coronavirus 229E Not Detected (NotDetected); Coronavirus NL63 Not Detected (NotDetected); Coronavirus OC43 Not Detected (NotDetected); Coronovirus HKU1,PCR Not Detected (NotDetected); Human Metapneumovirus Not Detected (NotDetected); Influenza A, PCR Not Detected (NotDetected); Influenza AH1, 2009 Not Detected (NotDetected); Influenza AH1, PCR Not Detected (NotDetected); Influenza AH3,PCR Not Detected (NotDetected); Influenza B, PCR Not Detected (NotDetected); Parainfluenza 1, PCR Not Detected (NotDetected); Parainfluenza 2, PCR Not Detected (NotDetected); Parainfluenza 3, PCR Not Detected (NotDetected); Parainfluenza 4, PCR Not Detected (NotDetected); Respiratory Syncytial Virus Not Detected (NotDetected)
[2023-07-21 15:11] LABS: Rhinovirus/Enterovirus Detected (NotDetected)
== END 2023-07-21 12:17 | disposition home or self-care (01) ==
PROVIDERS: Emergency Provider Nurse Practitioner; PCP Family Medicine
DX: R09.81 Nasal congestion (principal); B34.1 Enterovirus infection, unspecified; R07.0 Pain in throat
CPT/HCPCS: 87632; 87635; 87804; 87880; 99212; 99213; G0463

== ENCOUNTER 2024-01-08 12:45 | Emergency (ER) | payer OTHER, SELFPAY ==
[2024-01-08 14:00] VITALS: BP 134/74; PULSE 105; RESP 20; TEMP 36.8; O2SAT 98; BMI 28.8
[2024-01-08 14:15] LABS: Coronavirus 19, PCR Not Detected (NotDetected); Influenza A, PCR Not Detected (NotDetected); Influenza B, PCR Not Detected (NotDetected)
--- NOTE | 2024-01-08 14:40 | EXP.UTC ---
Discharge Plan Disposition Patient Disposition: Home, Self-Care Condition: Good Prescriptions Prescriptions: No Action norgestimate-ethinyl estradiol [Sprintec (28)] 0.25-35 mg-mcg tablet 1 tab PO DAILY Qty: 84 3RF duloxetine 60 mg capsule,delayed release(DR/EC) 60 mg PO DAILY Patient Comments: TAKE 1 CAPSULE BY MOUTH ONCE DAILY quetiapine 25 mg tablet 25 mg PO HS Patient Comments: TAKE 1 TABLET BY MOUTH AT BEDTIME Referrals Follow up/Referrals: Sunny Cowan MD [Primary Care Provider] - See instructions Activity Restrictions/Add. Instructions Additional Instructions/Restrictions: Call back this evening for Covid results. Tylenol/Motrin as needed for pain/fever. Clinical Impressions Clinical Impression: Viral syndrome Stand Alone Forms Stand Alone Forms: Work/School Release Instructions Patient Instructions: DI for Viral Syndrome Print Language Print Language: German Discharge ED Provider: Yola Callahan [facility] [place] HPI General Stated complaint: fever 101-102, body aches, cough, exp covid Mode of Arrival: Ambulatory Source of Information: Patient Limitations: No Limitations Time Seen by Provider: 01/08/24 14:39 Description of Symptoms (Recalled from Triage Doc. 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 Pt reports that she has had a fever up to 101 and took her last dose of Tylenol this morning at 6am. She states that she started feeling bad and having really bad body aches last night along with fever. She states that she has only had a slight cough and runny nose. Related Data Home Medications ?Medication ?Instructions ?Recorded ?Confirmed duloxetine 60 mg capsule,delayed 60 mg PO DAILY anxitey 02/02/23 01/08/24 release quetiapine 25 mg tablet 25 mg PO HS anxitey/sleep 02/02/23 01/08/24 Previous Rx's ?Medication ?Instructions ?Recorded norgestimate 0.25 mg-ethinyl 1 tab PO DAILY #84 tabs 11/03/23 estradiol 35 mcg tablet (Sprintec (28)) Allergies Allergy/AdvReac Type Severity Reaction Status Date / Time cinnamon Allergy Unknown Unknown Verified 11/04/23 15:21 allergy reaction oxycodone [From PERCOCET] Allergy Unknown I-HIVES Verified 11/04/23 15:21 shellfish derived Allergy Unknown Rash Verified 11/04/23 15:21 strawberry Allergy Unknown Verified 11/04/23 15:21 allergy reaction Worker's Comp Is this a Worker's Comp case?: No [facility] Disclaimer: The information contained in this section may have been updated after the patient was seen, as this information can be updated by other users. Medical History Anxiety Scoliosis Surgical History Hx of laparoscopy History of tonsillectomy and adenoidectomy Family History Other No significant family history Social History Smoking Status: Never smoker alcohol intake: current alcohol intake frequency: holidays/special occasions only substance use type: denies use current occupational status: other Travel in the last 8 weeks: None housing: house ROS Obtained: Yes All systems reviewed & no additional complaints except as documented Constitutional Constitutional: Reports system reviewed and no additional complaints, except as documented, Reports body ache, Reports chills, Reports fever(s), Reports headache(s) and Reports malaise Eyes Eyes: Reports system reviewed and no additional complaints, except as documented ENT Ears, Nose, Mouth, and Throat: Reports system reviewed and no additional complaints, except as documented, Reports headache(s) and Reports nasal discharge Cardiovascular Cardiovascular: Reports system reviewed and no additional complaints, except as documented Respiratory Respiratory: Reports system reviewed and no additional complaints, except as documented and Reports non-productive cough Gastrointestinal Gastrointestingal: Reports system reviewed and no additional complaints, except as documented Genitourinary Female Genitourinary: Reports system reviewed and no additional complaints, except as documented Musculoskeletal Musculoskeletal: Reports system reviewed and no additional complaints, except as documented Integumentary/Breasts Skin/Breast: Reports system reviewed and no additional complaints, except as documented Neurologic Neurologic: Reports system reviewed and no additional complaints, except as documented and Reports headache(s) Endocrine Endocrine: Reports system reviewed and no additional complaints, except as documented Hematologic/Lymphatic Henatologic/Lymphatic: Reports system reviewed and no additional complaints, except as documented Allergic/Immunologic Allergic/Immunologic: Reports system reviewed and no additional complaints, except as documented Physical Exam General General appearance: alert Comment: ill appearing Head Head exam: atraumatic and normocephalic Eye Eye exam: Present normal appearance ENT ENT exam: Present mucous membranes moist Expanded ENT Exam External ear exam: Present normal external inspection Nose exam: Absent sinus tenderness Nasal speculum exam: Bilateral: normal Mouth exam: Present normal external inspection Teeth exam: Present normal inspection Throat exam: Present normal inspection Neck Neck exam: Present normal inspection Chest Chest inspection: Present normal inspection and symmetric chest wall rise Respiratory Respiratory exam: Present normal lung sounds bilaterally Cardiovascular Cardiovascular exam: Present normal rhythm and tachycardia Abdominal Exam Abdominal exam: Present soft and normal bowel sounds Extremities Exam Extremities exam: Present normal inspection Back Exam Back exam: Present normal inspection Neurological Exam Neurological exam: Present alert and oriented X3 Psychiatric Psychiatric exam: Present normal affect and normal mood Skin Skin exam: Present warm, dry and intact Lymphatic Lymphatic Findings: no adenopathy Medical Decision Making Franko Inquiry Pt receiving controlled substance: No Franko was queried for this patient: No Vital Signs: 01/08/24 14:00 Temperature 98.3 F Temperature Source Oral Pulse Rate [Left Brachial] 105 H Respiratory Rate 20 Blood Pressure [Left Arm] 134/74 Blood Pressure Mean [Left Arm] 94 Blood Pressure Source [Left Arm] Automatic Cuff Blood Pressure Position [Left Arm] Sitting 02 Sat by Pulse Oximetry 98 Oxygen Delivery Method Room Air Orders (Tests/Meds): ORDERS Category Date Time Status Rapid PCR Covid and Flu A/B Stat Lab 01/08/24 14:00 Received
[2024-01-08 14:48] VITALS: BP 134/74; PULSE 105; RESP 20; TEMP 36.8; O2SAT 98
== END 2024-01-08 14:52 | disposition home or self-care (01) ==
PROVIDERS: Emergency Provider Nurse Practitioner Family; PCP Family Medicine
DX: R50.9 Fever, unspecified (principal); R05.9 Cough, unspecified; R09.81 Nasal congestion; Z20.822 Contact with and (suspected) exposure to COVID-19
CPT/HCPCS: 87636; 99212; 99213; G0463

== ENCOUNTER 2024-07-29 14:56 | Outpatient (CLI) | payer OTHER, SELFPAY ==
[2024-07-29 15:03] LABS: Coronavirus 19, PCR Not Detected (NotDetected); Influenza A, PCR Not Detected (NotDetected); Influenza B, PCR Not Detected (NotDetected)
== END 2024-07-29 23:59 | disposition home or self-care (01) ==
PROVIDERS: PCP Family Medicine; Visit Provider Physician Assistant
DX: J06.9 Acute upper respiratory infection, unspecified (principal)
CPT/HCPCS: 87636